=== PATIENT | female | born 1970 | race Caucasian/White ===

== ENCOUNTER 2019-09-19 15:13 | Emergency (ER) | payer OTHER, SELFPAY ==
[2019-09-19 15:21] VITALS: BP 109/65; PULSE 82; RESP 20; TEMP 36.3; O2SAT 97
--- NOTE | 2019-09-19 15:27 | ED.URI ---
HPI - URI/Sore Throat General Chief Complaint: Upper Respiratory Infection Stated Complaint: Sore Throat/Cold/Blisters on tongue Time Seen by Provider: 09/19/19 15:28 Source: patient and RN notes reviewed History of Present Illness HPI Narrative: Patient is 49-year-old female that presents the urgent care with complaints of sore throat, blisters on the tongue, dry cough, upper respiratory cold and ear pain for 2 weeks. Patient states she is also experienced fevers. Denies of any nausea or vomiting. Has been using cold syrup [id number] without much improvement. No other acute complaints. No acute distress noted. Patient read the plan of care. Related Data Home Medications Medication Instructions Recorded Confirmed Admelog U-100 Insulin lispro 36 units SUBCUT TID 07/11/19 Adult Aspirin Regimen 81 mg PO DAILY 07/11/19 gabapentin 300 mg PO TID 07/11/19 lisinopril 500 mg PO DAILY 07/11/19 metformin 500 mg PO DAILY 07/11/19 Basaglar KwikPen U-100 Insulin 20 units SUBCUT BID 09/19/19 09/19/19 albuterol sulfate [Ventolin HFA] 2 puff INHALATION QID 09/19/19 09/19/19 bupropion HCl [Wellbutrin SR] 150 mg PO BID 09/19/19 09/19/19 cetirizine 10 mg PO DAILY 09/19/19 09/19/19 furosemide 20 mg PO BID 09/19/19 09/19/19 montelukast [Singulair] 10 mg PO DAILY 09/19/19 09/19/19 omeprazole 40 mg PO DAILY 09/19/19 09/19/19 oxybutynin chloride 5 mg PO BID 09/19/19 09/19/19 pravastatin 20 mg PO DAILY 09/19/19 09/19/19 spironolactone 25 mg PO DAILY 09/19/19 09/19/19 vitamin B complex [B 1 tablet PO DAILY 09/19/19 09/19/19 Complex-Vitamin B12] Allergies Allergy/AdvReac Type Severity Reaction Status Date / Time oxycodone Allergy Itching Verified 09/19/19 15:29 Review of Systems Review of Systems: Narrative: CONSTITUTIONAL: Reports of chills and sweats EYES: Denies visual changes, redness, or discharge. ENT: Reports of congestion, sore throat, blisters to the tongue CARDIOVASCULAR: Denies chest pain, palpitations, or edema. RESPIRATORY: Reports of dry cough GASTROINTESTINAL: Denies abdominal pain, nausea, vomiting, or diarrhea. GENITOURINARY: Denies dysuria or hematuria. SKIN: Denies rash or itching. MUSCULOSKELETAL: Denies back pain, joint pain, or myalgia. NEUROLOGIC: Denies headache, numbness, or weakness. All other systems reviewed are negative, except as documented in HPI. PMFSH Comments At the time of my signature, I reviewed and agree with the nursing past medical, surgical, social, and family history. There is no relevant family history pertinent to the patient complaint. Exam Narrative: Exam Narrative: GENERAL: This is a well-nourished, well-developed patient, in no apparent distress. HEAD: normocephalic, atraumatic. EYES: PERRL. Sclera clear/white. Vision is grossly intact. EARS: External ears normal, auditory canals clear and without drainage, TMs normal without perforation. Hearing grossly intact. NOSE: External nose normal with no obvious nasal discharge, nares without redness, no rhinorrhea. THROAT: Mucous membranes moist, posterior pharynx clear. Moderate postnasal drainage. 2 notable healing blisters noted to the distal left tongue NECK: Neck supple CARDIOVASCULAR: Regular rate and rhythm without murmurs, gallops, or rubs. RESPIRATORY: Clear to auscultation. Breath sounds equal bilaterally. No wheezes, rales, or rhonchi. SKIN: warm, intact with no suspicious lesions or rash, good texture and turgor. NEURO: awake, alert, and oriented to person, place and time. There were no obvious focal neurologic abnormalities. EXTREMITIES: No clubbing, cyanosis, or edema. Course Vital Signs Vital signs: Vital Signs Temperature 97.3 F L 09/19/19 15:21 Pulse Rate 82 09/19/19 15:21 Respiratory Rate 20 09/19/19 15:21 Blood Pressure 109/65 09/19/19 15:21 Pulse Oximetry 97 09/19/19 15:21 Temperature 97.3 F L 09/19/19 15:21 Pulse Rate 82 09/19/19 15:21 Respiratory Rate 20 09/19/19 15:21 Blood Press
== END 2019-09-19 15:50 | disposition home or self-care (01) ==
PROVIDERS: Emergency Provider Nurse Practitioner Family
DX: J06.9 Acute upper respiratory infection, unspecified (principal); E78.00 Pure hypercholesterolemia, unspecified; I10 Essential (primary) hypertension; J44.9 Chronic obstructive pulmonary disease, unspecified; K21.9 Gastro-esophageal reflux disease without esophagitis; E11.9 Type 2 diabetes mellitus without complications
CPT/HCPCS: 87081; 87880; 99213; G0463

== ENCOUNTER 2020-07-28 14:38 | Emergency (ER) | payer OTHER, SELFPAY ==
[2020-07-28 14:45] VITALS: BP 103/59; PULSE 104; RESP 20; TEMP 36.6; O2SAT 97
--- NOTE | 2020-07-28 14:46 | ED.URI ---
HPI - URI/Sore Throat General Stated Complaint: left ear pain / sinus Time Seen by Provider: 07/28/20 14:46 Source: patient and RN notes reviewed History of Present Illness HPI Narrative: Patient is a 50-year-old female who presents the urgent care with complaints of left ear pain and sinus drainage. Patient states she is also had off-and-on headaches for the last 4 days. Denies any use of araz-iyz-[id number] medication for her symptoms. Denies of any fever, nausea, vomiting, shortness of breath or chest pain. Denies of any known exposure to Covid. No other acute complaints. No acute distress noted. Patient aware of the plan of care. Some parts of this dictation were generated by voice recognition software and may contain typographical and/or grammatical inaccuracies. Related Data Home Medications Medication Instructions Recorded Confirmed Admelog U-100 Insulin lispro 36 units SUBCUT TID 07/11/19 Adult Aspirin Regimen 81 mg PO DAILY 07/11/19 gabapentin 300 mg PO TID 07/11/19 lisinopril 500 mg PO DAILY 07/11/19 metformin 500 mg PO DAILY 07/11/19 Basaglar KwikPen U-100 Insulin 20 units SUBCUT BID 09/19/19 09/19/19 albuterol sulfate [Ventolin HFA] 2 puff INHALATION QID 09/19/19 09/19/19 bupropion HCl [Wellbutrin SR] 150 mg PO BID 09/19/19 09/19/19 cetirizine 10 mg PO DAILY 09/19/19 09/19/19 furosemide 20 mg PO BID 09/19/19 09/19/19 montelukast [Singulair] 10 mg PO DAILY 09/19/19 09/19/19 omeprazole 40 mg PO DAILY 09/19/19 09/19/19 oxybutynin chloride 5 mg PO BID 09/19/19 09/19/19 pravastatin 20 mg PO DAILY 09/19/19 09/19/19 spironolactone 25 mg PO DAILY 09/19/19 09/19/19 vitamin B complex [B 1 tablet PO DAILY 09/19/19 09/19/19 Complex-Vitamin B12] Allergies Allergy/AdvReac Type Severity Reaction Status Date / Time oxycodone Allergy Itching Verified 07/28/20 14:58 Review of Systems Review of Systems: Narrative: CONSTITUTIONAL: Denies fever, chills, or sweats. EYES: Denies visual changes, redness, or discharge. ENT: Reports of postnasal sinus drainage, left otalgia CARDIOVASCULAR: Denies chest pain, palpitations, or edema. RESPIRATORY: Denies cough or dyspnea. GASTROINTESTINAL: Denies abdominal pain, nausea, vomiting, or diarrhea. GENITOURINARY: Denies dysuria or hematuria. SKIN: Denies rash or itching. MUSCULOSKELETAL: Denies back pain, joint pain, or myalgia. NEUROLOGIC: Reports of headache All other systems reviewed are negative, except as documented in HPI. PMFSH Comments At the time of my signature, I reviewed and agree with the nursing past medical, surgical, social, and family history. There is no relevant family history pertinent to the patient complaint. Exam Narrative: Exam Narrative: GENERAL: This is a well-nourished, well-developed patient, in no apparent distress. HEAD: normocephalic, atraumatic. EYES: PERRL. Sclera clear/white. Vision is grossly intact. EARS: External ears normal, auditory canals clear and without drainage, TMs normal without perforation. Hearing grossly intact. NOSE: External nose normal with no obvious nasal discharge, nares without redness, no rhinorrhea. THROAT: Mucous membranes moist, posterior pharynx clear. NECK: Neck supple, non-tender without lymphadenopathy, masses or thyromegaly. CARDIOVASCULAR: Regular rate and rhythm without murmurs, gallops, or rubs. RESPIRATORY: Clear to auscultation. Breath sounds equal bilaterally. No wheezes, rales, or rhonchi. GASTROINTESTINAL: Abdomen soft, non-tender, nondistended. Bowel sounds are active. No hepato-splenomegaly, or palpable masses. No guarding. SKIN: warm, intact with no suspicious lesions or rash, good texture and turgor. NEURO: awake, alert, and oriented to person, place and time. There were no obvious focal neurologic abnormalities. EXTREMITIES: No clubbing, cyanosis, or edema. No joint tenderness, effusion, or edema noted. No calf tenderness. Negative Homans sign bilaterally. BACK: Nontender without deformity or crepitance. No flank
== END 2020-07-28 15:00 | disposition home or self-care (01) ==
PROVIDERS: Emergency Provider Nurse Practitioner Family; PCP Internal Medicine
DX: H92.02 Otalgia, left ear (principal); J32.9 Chronic sinusitis, unspecified; Z79.4 Long term (current) use of insulin; Z79.82 Long term (current) use of aspirin
CPT/HCPCS: 99211; G0463

== ENCOUNTER 2021-12-07 13:29 | Emergency (ER) | payer OTHER, SELFPAY ==
[2021-12-07 13:43] VITALS: BP 132/66; PULSE 106; RESP 14; TEMP 36.8; O2SAT 96
--- NOTE | 2021-12-07 14:54 | ED.UPPEXIN ---
HPI - Extremity Injury (Upper) General Chief Complaint: Extremity Injury, Upper Stated Complaint: Right Arm Pain/Nausea Time Seen by Provider: 12/07/21 14:50 Source: patient, RN notes reviewed and old records reviewed Mode of arrival: ambulatory Limitations: no limitations History of Present Illness HPI narrative: 51 [facility] of pain to her right upper arm for the past 1 1/2 month after getting Tetanus shot in her upper right arm at clinic in [place] after having a splinter removed from her foot. Patient states that she has pain in her right upper arm when she raises her arm, no swelling or any warmth or redness noted to her right upper arm. Patient is diabetic and she checks her glucose levels 4X daily and reports that they have been stable, denies any abdominal pain or vomiting, reports some episodes of nausea and dry heaves for the past 2 days, denies any fevers, chills or sweats or any body aches. MD complaint: injury to: right and arm Onset (ago): month(s) (1-1/2 months ago) Related Data Home Medications Medication Instructions Recorded Confirmed Admelog U-100 Insulin lispro 50 units SUBCUT BID 07/11/19 12/07/21 Adult Aspirin Regimen 81 mg PO DAILY 07/11/19 12/07/21 gabapentin 300 mg PO TID 07/11/19 12/07/21 lisinopril 5 mg PO DAILY 07/11/19 12/07/21 metformin 500 mg PO BID 07/11/19 12/07/21 Basaglermias RobbinsPen U-100 Insulin 50 units SUBCUT BID 09/19/19 12/07/21 albuterol sulfate [Ventolin HFA] 2 puff INHALATION QID 09/19/19 12/07/21 bupropion HCl [Wellbutrin SR] 150 mg PO BID 09/19/19 12/07/21 cetirizine 10 mg PO DAILY 09/19/19 12/07/21 furosemide 20 mg PO BID 09/19/19 12/07/21 omeprazole 40 mg PO DAILY 09/19/19 12/07/21 oxybutynin chloride 5 mg PO BID 09/19/19 12/07/21 pravastatin 20 mg PO DAILY 09/19/19 12/07/21 albuterol sulfate [Ventolin HFA] 2 puff INHALATION QID PRN 12/07/21 12/07/21 dulaglutide [Trulicity] 1.5 mg SUBCUT MONTHLY 12/07/21 12/07/21 insulin lispro [Admelog U-100 45 unit SUBCUT HS 12/07/21 12/07/21 Insulin lispro] mometasone-formoterol [Dulera] 2 puff INHALATION Q12H 12/07/21 12/07/21 Allergies Allergy/AdvReac Type Severity Reaction Status Date / Time oxycodone Allergy Itching Verified 12/07/21 13:48 Review of Systems Review of Systems: CONSTITUTIONAL: Denies fever, chills, or sweats. EYES: Denies visual changes, redness, or discharge. ENT: Denies rhinorrhea, congestion, sore throat, or otalgia. CARDIOVASCULAR: Denies chest pain, palpitations, or edema. RESPIRATORY: Denies cough or dyspnea. GASTROINTESTINAL: Denies abdominal pain,some nausea, no vomiting, or diarrhea. GENITOURINARY: Denies dysuria or hematuria. SKIN: Denies rash or itching. MUSCULOSKELETAL: Denies back pain, joint pain, or myalgia states pain to right upper arm aggravated with movement when she raises arm upward.. NEUROLOGIC: Denies headache, numbness, or weakness. PSYCHIATRIC: Positive for history of anxiety or depression. All systems reviewed & are unremarkable except as noted in HPI and below PMFSH Past Medical History Medical History (Updated 12/08/21 @ 18:02 by Shanda Wilson NP) Anxiety and depression COPD (chronic obstructive pulmonary disease) Diabetes Elevated cholesterol GERD (gastroesophageal reflux disease) Neuropathy Surgical History Surgical History (Updated 12/08/21 @ 17:57 by Shanda Wilson NP) History of eyelid surgery right Social History Social History (Updated 12/08/21 @ 17:59 by Shanda Wilson NP) Smoking packs per day: 0.5 Smoking cigarettes per day: 10.0 Years smoked: 35 Smoking pack-years: 17.50 Smoking status: Current every day smoker Alcohol intake: unknown Substance use: never Gender identity (if verbalized by the patient): Female Comments At time of signature, agree with nursing past medical, surgical, social and family history. There is no relevant family history pertinent to the presenting complaint Exam Narr
== END 2021-12-07 15:12 | disposition home or self-care (01) ==
PROVIDERS: Emergency Provider Registered Nurse; PCP Internal Medicine
DX: K21.9 Gastro-esophageal reflux disease without esophagitis (principal); M79.621 Pain in right upper arm; E10.9 Type 1 diabetes mellitus without complications; F17.210 Nicotine dependence, cigarettes, uncomplicated; Z79.4 Long term (current) use of insulin
CPT/HCPCS: 99212; G0463

== ENCOUNTER 2022-06-08 15:06 | Emergency (ER) | payer OTHER, SELFPAY ==
[2022-06-08 15:13] VITALS: BP 115/70; PULSE 95; RESP 20; TEMP 36.8; O2SAT 96
--- NOTE | 2022-06-08 15:35 | ED.URI ---
HPI - URI/Sore Throat General Chief Complaint: Upper Respiratory Infection Stated Complaint: Sinus Pressure/Ear Problem Time Seen by Provider: 06/08/22 15:50 Source: patient and RN notes reviewed Mode of arrival: ambulatory Limitations: no limitations History of Present Illness HPI Narrative: 52 year old female presents with concern for 2 day history of cough, sinus pressure, low-grade temperature, ear pressure. She reports several members of her family have similar symptoms that have been negative for COVID. She denies taking any smji-wgw-[id number] medications. She denies chills, body aches, sweats. MD elicited complaint: cough and sore throat Related Data Home Medications Medication Instructions Recorded Confirmed bupropion HCl 150 mg tablet,12 hr 150 mg PO BID 09/19/19 06/08/22 sustained-release (Wellbutrin SR) cetirizine 10 mg capsule 10 mg PO DAILY 09/19/19 06/08/22 furosemide 20 mg tablet 20 mg PO BID 09/19/19 06/08/22 omeprazole 40 mg capsule,delayed 40 mg PO DAILY 09/19/19 06/08/22 release pravastatin 20 mg tablet 20 mg PO DAILY 09/19/19 06/08/22 albuterol sulfate 90 mcg/actuation 2 puff inhalation QID PRN Dyspnea 12/07/21 06/08/22 aerosol inhaler (Ventolin HFA) dulaglutide 1.5 mg/0.5 mL 1.5 mg subcut WEEKLY 12/07/21 06/08/22 subcutaneous pen injector (Trulicity) insulin lispro 100 unit/mL 40 unit subcut QAM 12/07/21 06/08/22 subcutaneous solution (Admelog U-100 Insulin lispro) mometasone-formoterol HFA 200 2 puff inhalation Q12H PRN 12/07/21 06/08/22 mcg-5 mcg/actuation aerosol Shortness Of Breath inhaler (Dulera) gabapentin 300 mg capsule 300 mg PO TID 06/08/22 06/08/22 insulin lispro 100 unit/mL 35 unit subcut QNOON 06/08/22 06/08/22 subcutaneous solution (Admelog U-100 Insulin lispro) insulin lispro 100 unit/mL 35 unit subcut QPM 06/08/22 06/08/22 subcutaneous solution (Admelog U-100 Insulin lispro) lisinopril 5 mg tablet 5 mg PO DAILY 06/08/22 06/08/22 metformin 500 mg tablet 500 mg PO BID 06/08/22 06/08/22 mirabegron 25 mg tablet,extended 25 mg PO DAILY 06/08/22 06/08/22 release 24 hr (Myrbetriq) montelukast 10 mg tablet 10 mg PO DAILY 06/08/22 06/08/22 spironolactone 25 mg tablet 25 mg PO DAILY 06/08/22 06/08/22 Allergies Allergy/AdvReac Type Severity Reaction Status Date / Time oxycodone Allergy Itching Verified 06/08/22 15:43 Review of Systems Review of Systems: CONSTITUTIONAL: Denies malaise, chills, sweats, or fever. EYES: Denies visual changes, redness, or discharge. ENT: Reports rhinorrhea, congestion, ear pressure. Denies otalgia and sore throat. CARDIOVASCULAR: Denies chest pain, palpitations, or edema. RESPIRATORY: Reports cough. Denies dyspnea. GASTROINTESTINAL: Denies abdominal pain, nausea, vomiting, diarrhea SKIN: Denies rash or itching. MUSCULOSKELETAL: Denies myalgia. NEUROLOGIC: Denies headache. All systems reviewed & are unremarkable except as noted in HPI and below PMFSH Past Medical History Medical History (Updated 06/08/22 @ 16:13 by Sia Ramírez NP) Anxiety and depression COPD (chronic obstructive pulmonary disease) Diabetes Elevated cholesterol GERD (gastroesophageal reflux disease) Neuropathy Surgical History Surgical History (Updated 12/08/21 @ 17:57 by Shanda Wilson NP) History of eyelid surgery right Social History Social History (Updated 12/08/21 @ 17:59 by Shanda Wilson NP) Smoking packs per day: 0.5 Smoking cigarettes per day: 10.0 Years smoked: 35 Smoking pack-years: 17.50 Smoking status: Current every day smoker Alcohol intake: unknown Substance use: never Gender identity (if verbalized by the patient): Female Comments At time of signature, agree with nursing past medical, surgical, social and family history. There is no relevant family history pertinent to the presenting complaint Exam Narrative: GENERAL: Well-appearing, well-nourished, and in no acute distress. HEAD: Normoc
== END 2022-06-08 16:17 | disposition home or self-care (01) ==
PROVIDERS: Emergency Provider Nurse Practitioner; PCP Internal Medicine
DX: J06.9 Acute upper respiratory infection, unspecified (principal); R05.9 Cough, unspecified; Z20.822 Contact with and (suspected) exposure to COVID-19; F17.210 Nicotine dependence, cigarettes, uncomplicated; J44.9 Chronic obstructive pulmonary disease, unspecified; E78.00 Pure hypercholesterolemia, unspecified; K21.9 Gastro-esophageal reflux disease without esophagitis; E11.40 Type 2 diabetes mellitus with diabetic neuropathy, unspecified; F41.9 Anxiety disorder, unspecified; F32.A Depression, unspecified; Z79.4 Long term (current) use of insulin; Z79.84 Long term (current) use of oral hypoglycemic drugs
CPT/HCPCS: 87426; 87804; 99213; C9803; G0463